=== PATIENT | male | born 1985 ===

== ENCOUNTER → 2017-05-21 | Emergency (ER) | payer OTHER ==
[~2017-05-21] VITALS: Ht 167.6 cm; Wt 69.4 kg
== END | disposition home or self-care (01) ==
LOC: ER 09:47
DX: R10.84 Generalized abdominal pain (principal); K52.89 Other specified noninfective gastroenteritis and colitis; K59.09 Other constipation

== ENCOUNTER 2018-11-16 06:26 | Emergency (ER) | payer OTHER ==
[~2018-11-16] VITALS: Ht 170.2 cm; Wt 73.5 kg
[2018-11-16] MEDS ORDERED: COZAAR100 MG (06:52)
[2018-11-16] MEDS ORDERED: SKELAXIN800 MG PO (10:51)
[2018-11-16] MEDS ORDERED: CELEBREX200MG PO (10:51)
== END 2018-11-16 11:08 | disposition home or self-care (01) ==
LOC: ER 06:26
DX: M54.5 Low back pain (principal)

== ENCOUNTER 2022-11-24 12:50 | Outpatient (CLI) | payer OTHER ==
[~2022-11-24 12:50] MED LIST: CELEBREX200MG PO; COZAAR100 MG; SKELAXIN800 MG PO
== END 2022-11-24 13:04 | disposition home or self-care (01) ==
LOC: SONOGRAMA 12:50
DX: R22.1 Localized swelling, mass and lump, neck (principal)